=== PATIENT | female | born 1945 | race Caucasian/White ===

== ENCOUNTER 2018-09-25 08:55 | Outpatient (CLI) | payer MEDICARE ==
--- NOTE | 2018-09-26 04:42 | Ultrasound Report ---
Reason: VAGINAL BLEEDING Procedure Date: 09/25/2018 Accession Number: [id number] / [id number] Procedure: US - Pelvic w/Transvaginal CPT Code: FULL RESULT: EXAM: PELVIC ULTRASOUND EXAM DATE: 09/25/2018 10:58 AM. CLINICAL HISTORY: VAGINAL BLEEDING. COMPARISON: PELV 07/28/2008 8:05 AM. TECHNIQUE: Realtime transabdominal pelvic scan performed to identify the uterus and adnexa and as an overview of other pelvic structures, followed by transvaginal scan to provide greater detail of the uterus and adnexa, with static image documentation. FINDINGS: Uterus: 8.0 x 5.2 x 6.9 cm, volume 150.1 cc. Anteverted position. Fibroids are present which obscure endometrium. Fibroid in region of lower uterine segment measures 4.7 x 3.2 x 5.0 cm. Right uterine fibroid measures 4.8 x 3.3 x 4.0 cm. Left uterine fibroid measures 3.7 x 4.3 x 4.6 cm. Masses: Fibroids as above. Endometrium: Not visualized. Cervix: Not well seen. Right Ovary: 1.9 x 1.2 x 1.4 cm, volume 1.6 cc. Normal echotexture and blood flow. Left Ovary: 2.7 x 1.0 x 1.4 cm, volume 1.9 cc. Normal echotexture and blood flow. Free Fluid: None. Other: None. IMPRESSION: Multiple uterine fibroids are present which obscure endometrium. Gynecology consultation recommended for her for further evaluation/management of postmenopausal vaginal bleeding. [facility]
== END 2018-09-25 08:56 | disposition home or self-care (01) ==
LOC: DI 08:55
PROVIDERS: ATTEND Obstetrics & Gynecology
DX: N93.9 Abnormal uterine and vaginal bleeding, unspecified (principal); D25.9 Leiomyoma of uterus, unspecified
CPT/HCPCS: 76830; 76856